=== PATIENT | female | born 1955 | race Caucasian/White ===

== ENCOUNTER 2024-05-19 11:15 | Outpatient (RCR) | payer OTHER ==
[2024-05-26] MEDS ORDERED: NEURONTIN400 MG/CAP PO (06:49)
[2024-05-26] MEDS ORDERED: ROXICODONE 55 MG/TAB PO (06:49)
[2024-05-26] MEDS ORDERED: NEURONTIN600 MG/TAB PO (06:53)
[2024-05-26] MEDS ORDERED: OXYCONTIN 10MG10 MG PO (06:53)
[2024-05-26] MEDS ORDERED: GLUCOPHAGE500 MG/TAB PO (06:54)
[2024-05-26] MEDS ORDERED: NATURAL IRON65 MG (06:54)
[2024-05-26] MEDS ORDERED: MIRALAX510G PO (06:55)
[2024-05-26] MEDS ORDERED: CRESTOR20 MG PO (06:55)
[2024-05-26] MEDS ORDERED: DULOXETINE HCL40 MG PO (06:55)
[2024-05-26] MEDS ORDERED: SYNTHROID0.1 MG/TAB PO (06:56)
[2024-05-26] MEDS ORDERED: CALCIUM 600-D 61 TAB PO (06:57)
[2024-05-26] MEDS ORDERED: CELEBREX 200MG200 MG PO (06:59)
[2024-05-26] MEDS ORDERED: COLACE 100100 MG/CAP PO (06:59)
[2024-05-26] MEDS ORDERED: ZYRTEC 10MG10 MG PO (07:00)
[2024-05-26] MEDS ORDERED: ATROVENTNS0.03% NS (07:01)
[2024-05-26] MEDS ORDERED: FLONASE NASAL S16 GM NS (07:02)
[2024-05-26] MEDS ORDERED: NARCAN4 MG NS (07:03)
[2024-05-26] MEDS ORDERED: ZANAFLEX 4MG TAB4 MG PO (07:04)
== END 2024-05-26 | disposition home or self-care (01) ==
LOC: MKS.ESL.PT
DX: G62.9 Polyneuropathy, unspecified (principal); R20.2 Paresthesia of skin

== ENCOUNTER 2024-06-23 11:15 | Outpatient (RCR) | payer OTHER ==
[~2024-06-23 11:15] MED LIST: ATROVENTNS0.03% NS; CALCIUM 600-D 61 TAB PO; CELEBREX 200MG200 MG PO; COLACE 100100 MG/CAP PO; CRESTOR20 MG PO; DULOXETINE HCL40 MG PO; FLONASE NASAL S16 GM NS; GLUCOPHAGE500 MG/TAB PO; MIRALAX510G PO; NARCAN4 MG NS; NATURAL IRON65 MG; NEURONTIN400 MG/CAP PO; NEURONTIN600 MG/TAB PO; OXYCONTIN 10MG10 MG PO; ROXICODONE 55 MG/TAB PO; SYNTHROID0.1 MG/TAB PO; ZANAFLEX 4MG TAB4 MG PO; ZYRTEC 10MG10 MG PO
== END 2024-06-26 | disposition home or self-care (01) ==
LOC: MKS.ESL.PT
DX: G62.9 Polyneuropathy, unspecified (principal); R20.2 Paresthesia of skin

== ENCOUNTER → 2024-07-26 | Outpatient (CLI) | payer MEDICARE, OTHER ==
[~2024-07-26] MED LIST changes: +NS IV ONE; +SINCALIDE IV ONE
== END ==
LOC: COL.RAD 08:57
DX: D78.32 Postprocedural hematoma of the spleen following other procedure (principal); R79.89 Other specified abnormal findings of blood chemistry; Z90.49 Acquired absence of other specified parts of digestive tract
CPT/HCPCS: A9537-JZ